=== PATIENT | female | born 1955 | race Caucasian/White ===

== ENCOUNTER 2024-12-07 22:35 | Emergency (ER) | payer OTHER, SELFPAY ==
--- NOTE | 2024-12-07 22:47 | ED_ITS ---
HPI - Abdominal Pain General Time Seen by Provider: 22:47 Date Seen: 12/07/24 Chief Complaint: Abdominal Pain Stated Complaint: R flank pain Time Seen by Provider: 12/07/24 22:47 Source: patient Mode of arrival: ambulatory Limitations: no limitations History of Present Illness HPI narrative: 69-year-old female who presents today with right-sided abdominal pain. Has had this all day. Vomited once. Pain is worse with movement and breathing, has not really tried to eat since she vomited earlier. No fevers or chills, has not had pain like this before, denies urinary symptoms. No chest pain, says she feels little short of breath. Related Data Home Medications ?Medication ?Instructions ?Recorded ?Confirmed albuterol sulfate .ROUTE 12/07/24 budesonide-formoterol HFA 80 1 inh inhalation BID 12/07/24 12/07/24 mcg-4.5 mcg/actuation aerosol inhaler (Symbicort) lisinopril 2.5 mg tablet 2.5 mg PO DAILY 12/07/24 12/07/24 Allergies Allergy/AdvReac Type Severity Reaction Status Date / Time pseudoephedrine (From Allergy Swelling Verified 12/08/24 00:30 Sudafed) of Lip/Tongue/Throat Exam Narrative: Exam Narrative: General: Well-developed and well-nourished, no acute distress Head: Atraumatic and normocephalic Eyes: Pupils are equal reactive, extraocular motions intact, conjunctiva clear ENT: External nose and ears are normal, posterior pharynx without erythema or exudate Neck: No midline cervical tenderness, full spontaneous range of motion the neck, trachea midline, no adenopathy Heart: Regular rate and rhythm no murmurs or thrills Lungs: bilateral expiratory wheezes worse and more coarse on the right Abdomen: Soft, Right lateral abdominal tenderness,, nondistended with active bowel sounds Musculoskeletal: No tenderness, deformity, or edema Neurologic: Awake, alert, and oriented x3, no gross focal neurologic deficits, cranial nerves intact as tested Psych: Mood and affect are appropriate Skin: No rashes Const: Vital Signs, click to edit/add: Vital Signs - 24 hr 12/07/24 22:50 Temperature 98.7 F Pulse Rate [Right Pulse Oximeter] 100 Respiratory Rate 26 H Blood Pressure [Ri ght Upper Arm] 126/84 Pulse Oximetry 93 Oxygen Delivery Me thod Room Air Course Course ED Course: patient seen and examined, presents today with right-sided abdominal pain. Did vomit earlier. On exam here, finally stable, no respiratory distress, appears comfortable, no fever. expiratory wheezes bilaterally, more coarse on the right. Right lateral abdominal tenderness. Consider intra-abdominal pathology including colitis, cholecystitis, acute appendicitis possible but a little bit less likely. Also consider intrathoracic pathology including pneumonia. Reevaluation(s) Time of Reevaluation #1: 23:30 Reevaluation #1: labs and bili interpreted by me with normal CBC, urinalysis with trace protein, no red cells. CT scan of the abdomen pelvis will be performed, consider CT PE study if D-dimer is positive. Time of Reevaluation #2: 00:29 Reevaluation #2: D-dimer positive, CT PE study ordered and independently interpreted by me, no evidence for pulmonary embolism, patient does appear to have a couple pulmonary nodules which will need outpatient follow-up. CT scan of the abdomen and pelvis independently interpreted by me with decompressed gallbladder, no stones, no evidence for acute appendicitis. Labs independently interpreted by me with normal basic metabolic panel, normal hepatic panel, normal lipase. Impression: 1. Allowing for mild respiratory motion degradation, no acute abnormality is appreciated. 2. Linear areas of scarring and/or atelectasis. A more nodular focal area in the right lung base is noted measuring 19 millimeters, could represent confluent scarring but is overall indeterminate with no prior examination available for comparison. Follow-up CT in 3 months recommended. Vital Signs Vital signs: Initial Vital Signs Temperature 98.7 F 12/07/24 22:50 Temperature Source Temporal Artery Scan 12/07/24 22:50 Pulse Rate 100 12/07/24 22:50 Respiratory Rate 26 H 12/07/24 22:50 Blood Pressure 126/84 12/07/24 22:50 Blood Pressure Mean 98 12/07/24 22:50 Blood Pressure Position Sitting 12/07/24 22:50 Pulse Oximetry 93 12/07/24 22:50 Oxygen Delivery Method Room Air 12/07/24 22:50 Vital Signs Temperature 98.7 F 12/07/24 22:50 Pulse Rate 100 12/07/24 22:50 Respiratory Rate 26 H 12/07/24 22:50 Blood Pressure 126/84 12/07/24 22:50 Pulse Oximetry 93 12/07/24 22:50 Oxygen Delivery Method Room Air 12/07/24 22:50 Temperature 98.7 F 12/07/24 22:50 Pulse Rate 100 12/07/24 22:50 Respiratory Rate 26 H 12/07/24 22:50 Blood Pressure 126/84 12/07/24 22:50 Pulse Oximetry 93 12/07/24 22:50 Oxygen Delivery Method Room Air 12/07/24 22:50 Medications Administered Medications: Discontinued Medications Generic Name Dose Route Start Last Admin Trade Name Jorgeq PRN Reason Stop Dose Admin Albuterol/Ipratropium 1 neb 12/07/24 23:56 12/08/24 00:13 Iprat-Albut 0.5-2.5 Mg/3 Ml Neb IH 12/07/24 23:57 1 neb ONCE ONE Administration MDM - Abdominal Pain Lab Data Labs: Lab Results 12/07/24 12/07/24 Range/Units 22:55 23:05 WBC 6.46 (4.50-11.00) K/uL RBC 4.34 (4.00-5.20) m/uL Hgb 13.7 (12.0-16.0) gm/dL Hct 41.9 (33.0-51.0) % MCV 97 (80-100) fL MCH 32 (26-34) pg MCHC 33 (32-36) gm/dL RDW Coeff of Anisa 13.6 (11.5-15.5) % Plt Count 216 (140-440) K/uL Neut % (Auto) 76.2 H (42.0-72.0) % Lymph % (Auto) 7.6 L (20-44) % [place] % (Auto) 7.3 (0.0-11.0) % Eos % (Auto) 8.4 H (0.0-7.0) % Baso % (Auto) 0.2 (0.0-3.0) % Neut # (Auto) 4.90 (1.7-7.0) K/uL Lymph # (Auto) 0.50 L (0.90-2.90) K/uL [place] # (Auto) 0.50 (0.00-0.90) K/UL Eos # (Auto) 0.50 (0.00-0.50) K/uL Baso # (Auto) 0.01 (0.00-0.30) K/uL Abs Immat Gran (auto) 0.02 (0.00-0.30) K/uL Imm/Tot Granulo (auto) 0.3 % D-Dimer Quant (PE/DVT) 1.73 H (0.00-0.50) ug/ml Sodium 137 (135-149) mmol/L Potassium 3.6 (3.6-5.1) mmol/L Chloride 101 (96-114) mmol/L Carbon Dioxide 28 (20-32) mmol/L Anion Gap 8 (7-15) mEq/L BUN 12 (7-30) mg/dL Creatinine 0.8 (0.5-1.5) mg/dL Estimated Creat Clear 43.18 Estimated GFR 81 ml/min Glucose 94 (60-115) mg/dL Calcium 8.8 (8.4-10.6) mg/dL Total Bilirubin 0.5 (0.1-1.5) mg/dL Direct Bilirubin 0.4 (0.0-0.5) mg/dL AST 23 (12-35) U/L ALT 11 (4-35) U/L Alkaline Phosphatase 91 (40-150) U/L Total Protein 6.9 (6.0-8.3) g/dL Albumin 3.9 (3.3-5.0) g/dL Lipase 32 (23-300) U/L Urine Color Yellow (Yellow) Urine Appearance Clear (Clear) Urine pH 5.5 (5.0-8.5) Ur Specific [place] 1.015 (1.000-1.030) Urine Protein Trace A (Negative) Urine Glucose (UA) Negative (Negative) Urine Ketones Negative (Negative) Urine Blood Negative (Negative) Urine Nitrite Negative (Negative) Urine Bilirubin Negative (Negative) Urine Urobilinogen 0.2 (0.2-1.0) Ur Leukocyte Esterase Negative (Negative) Urine RBC 0-2 (0-2) Urine WBC 2-5 (0-5) Ur Squamous Epith Cells Few (None-Few) Urine Bacteria Few A (None) Urine Mucus Few A (None) Discharge Plan Discharge Clinical Impression: Incidental pulmonary nodule, Right lateral abdominal pain Patient Disposition: Home, Self-Care Condition: Stable Instructions: Abdominal Pain (ED), Pulmonary Nodules (ED) Additional Instructions: After evaluation today, no definite cause for your pain is found. The gallbladder and appendix appear normal, there are no blood clots or evidence of infection in the lungs. Your CT scan does show a nodule in the right long that may represent scar tissue but will need to be rechecked in about 3 months with a repeat CT scan. He should talk to your regular doctor about this. Take Tylenol or ibuprofen as needed for pain. Activity Level: No Restrictions Discharge Diet: Regular Prescriptions: No Action albuterol sulfate [Ventolin HFA] .ROUTE budesonide-formoterol [Symbicort] 80-4.5 mcg/actuation HFA aerosol inhaler 1 inh inhalation BID lisinopril 2.5 mg tablet 2.5 mg PO DAILY Follow Up/Referrals: Priscila Tovar MD [Primary Care Provider] - Stand Alone Forms: [employer] Info Instructions
[2024-12-07 22:50] VITALS: BP 126/84; PULSE 100; RESP 26; TEMP 37.1; O2SAT 93; BMI 40.8
[2024-12-07 23:04] LABS: Appearance Urine Clear (Clear); Bilirubin Urine Negative (Negative); Blood Urine Negative (Negative); Color Urine Yellow (Yellow); Glucose Urine Negative (Negative); Ketones Urine Negative (Negative); Leukocyte Esterase Urine Negative (Negative); Nitrite Urine Negative (Negative); Protein Urine Trace (Negative); Specific Gravity Urine 1.015 (1.000-1.030); Urobilinogen Urine 0.2 (0.2-1.0); pH Urine 5.5 (5.0-8.5)
[2024-12-07 23:19] LABS: Basophils Absolute Auto 0.01 K/uL (0.00-0.30); Basophils Percent Auto 0.2 % (0.0-3.0); Eosinophils Percent Auto 8.4 % (0.0-7.0); Hematocrit 41.9 % (33.0-51.0); Hemoglobin* 13.7 gm/dL (12.0-16.0); Immature Granulocytes Abs Auto 0.02 K/uL (0.00-0.30); Immature Granulocytes Pct Auto 0.3 %; Lymphocytes Percent Auto 7.6 % (20-44); Mean Corpuscular HGB Conc 33 gm/dL (32-36); Mean Corpuscular Hemoglobin 32 pg (26-34); Mean Corpuscular Volume 97 fL (80-100); Monocytes Percent Auto 7.3 % (0.0-11.0); Neutrophils Percent Auto 76.2 % (42.0-72.0); Platelet Count* 216 K/uL (140-440); RDW Coefficient of Variation % 13.6 % (11.5-15.5); Red Blood Count 4.34 m/uL (4.00-5.20); White Blood Count* 6.46 K/uL (4.50-11.00)
[2024-12-07 23:21] LABS: Bacteria Urine Few; Mucus Urine Few; RBC Urine 0-2 (0-2); Squamous Epithelial Cell Urine Few (None-Few)
[2024-12-07 23:22] LABS: Slide Review Reflex No
[2024-12-07 23:31] LABS: Albumin* 3.9 g/dL (3.3-5.0); Chloride* 101 mmol/L (96-114); Potassium* 3.6 mmol/L (3.6-5.1); Sodium* 137 mmol/L (135-149)
--- OUTSIDE RECORDS SUMMARY | 2024-12-07 23:32 | XMS_ITS | Encounter Summary ---
Author Organization [employer] [facility] [employer] Address [address] [place] [address] Care Team Providers Care Lens Generating Machine Tender Name Role Phone No Primary/Referring, Phy Primary Care Provider Unavailable Encounter Details Date Type Department Care Team (Late st Contact Info) Description 05/28/2012 Emergency Room External to [facility], Provider NASAL CONGESTION Social History Tobacco Use Types Packs/Day Years Used Date Smoking Tobacco: Every Day Alcohol Use Standard Drinks/Week Comments Yes 0 (1 standard drink = 0.6 oz pur e alcohol) 3-4x/year Comments No Sex and Gender Information Value Date Recorded Sex Assigned at Not on file Legal Sex Female 3:43 AM CDT Gender Identity Not on file Sexual Orientation Not on file 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
--- OUTSIDE RECORDS SUMMARY | 2024-12-07 23:32 | XMS_ITS | Encounter Summary ---
Author Organization Replaced by [facility] Address [address] [place] [address] Care Team Providers Care System Architect Name Role Phone No Primary/Referring, Phy Primary Care Provider Unavailable Encounter Details Date Type Department Care Team (Late st Contact Info) Description 10/29/2024 Results Follow-Up Replaced by [facility] [place] [address] [place], [place] [id number] Duy Schaeffer MD [address] [place], [place] [address] Social History Tobacco Use Types Packs/Day Years Used Date Smoking Tobacco: Former Cigarettes 0 47.1 0 02/23/1976 - 03/30/2023 Smokeless Tobacco: Never Alcohol Use Standard Drinks/Week Comments Yes 0 (1 standard drink = 0.6 oz pur e alcohol) 3-4x/year PHQ-2 Answer Date Recorded PHQ-2 Score 0 06/25/2023 Financial Resource Strain Answer Date R ecorded Is it hard for you to pay fo r the very basics like food, housing, medical care or heating? No 01/18/2023 Food Insecurity Answer Date Recorded Does your food run out before you have the money to buy more? No 01/18/2023 Transportation Needs Answer Date Record ed Does a lack of transportatio n keep you from your medical appointments or from getting your medications? 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
--- OUTSIDE RECORDS SUMMARY | 2024-12-07 23:32 | XMS_ITS | Encounter Summary ---
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 Thanks for using [facility] today. I?? sorry to hear that you're having symptoms of a bladder infection -- let's get you feeling better!! I've sent a prescription for an antibiotic to [facility]. Take the medication with a full meal twice a day and remember to drink lots of fluids. Please be sure to read through the treatment plan I've put together for you below, as this has additional information and instructions. We are here for you for any questions or concerns along the way, just request a follow up. Feel better soon! - EDGAR Gan Treatment Plan Because you have a bacterial infection, I sent a prescription for an antibiotic to [facility]. I also listed a few ways to soothe your discomfort and additional self-care tips to get you on the road to feeling better. If your symptoms don't start to improve after 3 days, or if you have questions,please select Help to Request a Follow-up and we'll discuss next steps. Order(s) nitrofurantoin monohyd/m-cryst 100 mg capsule Take 1 capsule by mouth every twelve hours as directed for 5 days Note: Take with food to improve absorption. Refills: None Sent To: [facility] [place] [address] Treatment Plan Self Care Tip Topics Drink Water Avoid Caffeine Warm Packs What to Expect If you follow the recommendations I made on the Treatment tab, your symptoms should start to improve in about 3 days. If your symptoms don't start to improve after 3 days, or if you have questions, please select Help to Request a Follow- up and we'll help determine next steps. What to Watch Out For Follow-up in clinic if you experience: ??? Fever higher than 99.9 degrees ??? Shaking or chills ??? Vomiting ??? Severe pain in your back, abdomen or pelvis ??? Extreme fatigue My Conditions, Orders, Allergies as of December 03, 2024 Standard condition list Asthma ASTHMA WHEN I GET SICK Current orders nitrofurantoin monohyd/m-cryst (nitrofurantoin monohyd/m-cryst) lisinopril (lisinopril) topiramate (bulk) (topiramate (bulk)) Vitamin D2 (ergocalciferol (vitamin D2)) albuterol sulfate (albuterol sulfate) albuterol sulfate (albuterol sulfate) Allergies Sudafed (pseudoephedrine HCl), oral [employer] Information [employer] by [employer] We are an online clinic open 19/02. If you have any questions or comments about this visit, please call or email [email or web address] documented in this encounter Plan of Treatment Not on file documented as of this encounter Visit Diagnoses Diagnosis Urinary tract infection, site not specified documented in this encounter Care Teams Gypsum Roofer Relationship Specialty Start Date End Date No Primary/Referring, Phy PCP - General 04/29/24 documented as of this encounter
--- OUTSIDE RECORDS SUMMARY | 2024-12-07 23:32 | XMS_ITS | Encounter Summary ---
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
--- OUTSIDE RECORDS SUMMARY | 2024-12-07 23:32 | XMS_ITS | Encounter Summary ---
Author Organization [employer] Address [address] [address] Care Team Providers Care Industrial Retrofit Designer Name Role Phone No Primary/Referring, Phy Primary Care Provider Unavailable Encounter Details Date Type Department Care Team (Latest Contact Info) Description 11/06/1995 Orders Only Che Flor MD Social History Tobacco Use Types Packs/Day Years Used Date Smoking Tobacco: Never Assessed Comments Unknown Sex and Gender Information Value Date Recorded Sex Assigned at Not on file Legal Sex Female 3:43 AM CDT Gender Identity Not on file Sexual Orientation Not on file documented as of this encounter Plan of Treatment Not on file documented as of this encounter Visit Diagnoses Not on filedocumented in this encounter Care Teams Industrial Retrofit Designer Relationship Specialty Start Date End Date No Primary/Referring, Phy PCP - General 04/29/24 documented as of this encounter
--- OUTSIDE RECORDS SUMMARY | 2024-12-07 23:32 | XMS_ITS | Encounter Summary ---
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, Provider - 06/10/2013 12:00 AM CST H UP PAINTER HAND documented in this encounter Plan of Treatment Not on file documented as of this encounter Visit Diagnoses Not on filedocumented in this encounter Care Teams Reset Merchandiser Relationship Specialty Start Date End Date No Primary/Referring, Phy PCP - General 04/29/24 documented as of this encounter
--- OUTSIDE RECORDS SUMMARY | 2024-12-07 23:32 | XMS_ITS | Encounter Summary ---
Author Organization [employer] Address [address] [place] [address] Care Team Providers Care University Librarian Name Role Phone No Primary/Referring, Phy Primary Care Provider Unavailable Encounter Details Date Type Department Care Team (Late st Contact Info) Description 01/16/2017 Refill Order [facility] [address] [place] [address] Darlene Gomes, MOSAIC FLOOR LAYER, CEMENT MIXER DRIVER Social History Tobacco Use Types Packs/Day Years Used Date Smoking Tobacco: Every Day Cigarettes Alcohol Use Standard Drinks/Week Comments Yes 0 (1 standard drink = 0.6 oz pur e alcohol) 3-4x/year Comments No Sex and Gender Information Value Date Recorded Sex Assigned at Not on file Legal Sex Female 3:43 AM CDT Gender Identity Not on file Sexual Orientation Not on file 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 Phil Rader CMA 01/16/2017, 10:24 AM documented in this encounter Plan of Treatment Not on file documented as of this encounter Results * Potassium (02/19/2017 8:12 AM CDT) Potassium 4.1 3.5 - 5.1 mmol/L [facility] 02/19/2017 8:12 AM CDT 02/19/2017 8:13 AM CDT Narrative [facility] - 02/19/2017 12:30 PM CDT Performed at [facility], [address] [place], [place] [id number] Darlene Gomes APRN, CEMENT MIXER DRIVER LAB_1 Stephanie l Result Performing Organization Address [facility] Co de Phone Number [facility] [phone] * Creatinine / GFR (02/19/2017 8:12 AM CDT) Creatinine 0.77 0.55 - 1.02 mg/dl [facility] GFR, Estimated >60 >60 ml/min/1.7 3m2 [facility] GFR, Est., If Black >60 >60 ml/min/1.7 3m2 [facility] 02/19/2017 8:12 AM CDT 02/19/2017 8:13 AM CDT Narrative [facility] - 02/19/2017 12:30 PM CDT Performed at [facility], [address] [place], [place] [id number] Darlene Gomes APRN, CEMENT MIXER DRIVER LAB_1 Stephanie l Result Performing Organization Address [facility] Co de Phone Number [facility] [phone] documented in this encounter Visit Diagnoses Diagnosis Encounter for long-term (current) use of medications- Primary Encounter for long-term (current) use of other medications Encounter for long-term (current) use of medications Encounter for long-term (current) use of other medications Screening cholesterol level Screening for lipoid disorders Vitamin D deficiency ([facility]) Unspecified vitamin D deficiency documented in this encounter Care Teams University Librarian Relationship Specialty Start Date End Date No Primary/Referring, Phy PCP - General 04/29/24 documented as of this encounter
--- OUTSIDE RECORDS SUMMARY | 2024-12-07 23:32 | XMS_ITS | Encounter Summary ---
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
--- OUTSIDE RECORDS SUMMARY | 2024-12-07 23:32 | XMS_ITS | Encounter Summary ---
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
--- OUTSIDE RECORDS SUMMARY | 2024-12-07 23:32 | XMS_ITS | Clinical Summary ---
Author Organization [facility] Address [address], [place] [address] Care Team Providers Care Seamstress Fitter Name Role Phone No Primary/Referring, Phy Primary Care Provider Unavailable Source Comments You are receiving this document as you are listed as the primary care provider,follow-up provider, or the patient has been referred to you for consultation.This is in compliance with the Medicare and[facility] EHR Incentive Program,which states Providers who transition their patient to another setting of careor provider of care or refers their patient to another provider of care shouldprovide summary care record for each transition of care or referral. Asterisk Allergies Active Allergy Reactions Criticality Noted Date Comments Amoxicillin Rash Low 01/26/2004 Pseudoephedrine 11/23/2014 Pseudoephedrine Hcl Hives High Medications Multiple Vitamins-Minera ls (MULTIVITAL OR) Take 4 Tabs by mouth daily. Active acetaminophen (TYLENOL) 325 MG tablet Take 1-2 Tablets (325-650 mg) by mouth every 4 hours as needed. Active aspirin 81 MG enteric coated tablet Take 1 Tab by mouth daily. 30 Tab 3 2 Active Additional Information Patient not taking.Reported on 09/23/2024 Vitamin D, Ergocalciferol, 1.25 MG (19549 UT) CAPSIndications :Vitamin D deficiency (HRC) TAKE ONE CAP BY MOUTH TWO TIMES WEEKLY. 24 Capsule 4 Active methylPREDNISol one (MEDROL 21 TABLET DOSEPACK) 4 MG tablet Follow package directions 21 Tablet 4 Active budesonide-form oterol (SYMBICORT) 80-4.5 MCG/ACT inhaler Inhale 2 Puffs two times a day. Rinse mouth/gargle after use. 1 Each 11 4 04/16/20 25 Active methylPREDNISol one (MEDROL 21 TABLET DOSEPACK) 4 MG tablet Follow package directions 21 Tablet 4 Active Additional Information Patient not taking.Reported on 09/23/2024 VENTOLIN HFA 108 (90 Base) MCG/ACT inhalerIndicati ons:Vitamin D deficiency (HRC) INHALE 1-2 PUFFS EVERY 4 HOURS NEEDED FOR WHEEZING. 2 Each 4 Active albuterol 2.5 mg/3 mL, 0.083%, (PROVENTIL) nebulizer solutionIndicat ions:Wheezing Inhale 1 Each (2.5 mg) every 6 hours as needed for Wheezing. 180 mL 4 Active cyclobenzaprine (FLEXERIL) 5 MG tabletIndicatio ns:Acute right-sided low back pain without sciatica Take 1 Tablet (5 mg) by mouth three times a day as needed for Muscle Spasms. 30 Tablet 4 Active Additional Information Patient not taking.Reported on 09/23/2024 lisinopril (ZESTRIL) 2.5 MG tablet TAKE 1 TABLET BY MOUTH EVERY DAY 90 Tablet 3 4 Active topiramate (TOPAMAX) 25 MG tablet TAKE 1 TABLET BY MOUTH TWICE A DAY 180 Tablet 1 4 Active budesonide-form oterol (SYMBICORT) 80-4.5 MCG/ACT inhaler Inhale 2 Puffs two times a day. Rinse mouth/gargle after use. 1 Each 11 5 08/21/19 26 Active methylPREDNISol one (MEDROL 21 TABLET DOSEPACK) 4 MG tablet Follow package directions 21 Tablet 5 Active Additional Information Patient not taking.Reported on 09/23/2024 Active Problems Problem Noted Date Diagnosed Date COPD with chronic bronchitis 05/28/2019 Moderate persistent asthma with acute exacerbati on 05/28/2019 Moderate persistent asthma without complication 05/28/2019 COPD, mild 05/28/2019 Aortic valve disorder 01/25/2012 Overview (04/29/2015): AI 01/2012-negative exercise stress test Dr. Singh-needs echo and follow up in one year 02/08 [facility] Heart murmur 11/09/2011 Vitamin D deficiency 12/30/2009 Overview (02/22/2017): Component Latest Ref Rng 11/09/2011 VITAMIN D, 25-OH, TOT 30 - 80 ng/mL 11.0 (L) 02/22/2017 pt reports takes 50,000 IU weekly consistently Personal history of gastric banding 12/24/2009 Wheezing 01/26/2004 Overview (03/21/2017): Rare inhaler use ; ASTHMA Obesity 01/08/2004 Overview (04/29/2015): [facility] Intestinal malabsorption 01/08/2004 Overview (04/29/2015): Gastric banding 08/05/96 [facility] Resolved Problems Problem Noted Date Diagnosed Date Resolved Date Cervical cancer screening 03/01/2017 Overview (07/25/2023): Per visit note 02/22/17, no hx abnormal Pap 2013 NILM 2016 NILM, HPV negative 61 y.o. 2022 NILM, HPV negative 67 y.o. Plan per ASCCP guidelines: Pt has met the criteria to cease pap testing Injury of right knee 12/13/2014 018 Overview (12/13/2014): 11/22/1451-aqyo-CTRM-XR negative for Fx Rash 03/29/2007 05/31/2018 Tobacco use disorder 03/29/2007 018 Overview (02/22/2017): 02/22/2017 would like to retry chantix Encounters Date Type Department Care Team Description 12/03/2024 lukas Huerta [address] [place] [address] 10/29/2024 Results Follow-Up [facility] [place] [address] [place] [address] Duy Schaeffer MD 09/23/2024 5:20 PM CARD ASSEMBLER Office Visit [facility] [place] [address] [place] [address] [phone] Rosy Brown APRN, PHYSICIAN CREDENTIALING SPECIALIST Chronic obstructive pulmonary disease with acute exacerbation (HRC) (Primary Dx) from Last 3 Months Immunizations Immunization Administration Dates Next Due PPSV23 (Pneumovax) 11/21/2010 Td (7+ yrs) 02/22/2017 Tdap 03/29/2007 Family History Medical History Relation Name Comments Cancer Father lung cancer Coronary Artery Disease Father High Blood Pressure Father Cancer Mother ?liver High Blood Pressure Mother Coronary Artery Disease Paternal Grandmother Hypertension Paternal Grandmother Osteoporosis Paternal Grandmother Relation Name Status Comments Father (Age 64) lung cance r Mother Alive Brother 1 Alive 45 Brother 2 Alive 36 Brother 3 Alive 34 Maternal Grandfather Maternal Grandmother (Age 96) Paternal Grandfather Paternal Grandmother old age Sister Alive 44 Son 1 Alive 33 Son 2 Alive 31 Son 3 Alive 21 Social History Tobacco Use Types Packs/Day Years [...] 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 on file Not on file Not on file Last Filed Vital Signs Vital Sign Reading Time Taken Comments Blood Pressure 119/76 09/23/2024 4:42 PM CARD ASSEMBLER Pulse 90 09/23/2024 4:42 PM CARD ASSEMBLER Temperature 37 C (98.6 F) 09/23/2024 4:42 PM CARD ASSEMBLER Respiratory Rate 18 09/23/2024 4:42 PM CARD ASSEMBLER Oxygen Saturation 97% 09/23/2024 4:42 PM CARD ASSEMBLER Inhaled Oxygen Concentration - - Weight 100.7 kg (222 lb) 04/28/2024 3:52 PM CDT Height 156.8 cm (5' 1.75) 06/25/2023 2:19 PM CS T Body Mass Index 40.93 06/25/2023 2:19 PM CARD ASSEMBLER Plan of Treatment Health Maintenance Due Date Last Done Comments Mammogram 1955 Zoster/Shingles Vaccine (1 of 2) 2007 Pneumococcal Vaccine 50+ Yrs (2 of 2 - PCV) 11/22/2011 11/21/2010 RSV Vaccine (1 - Risk 60-74 years 1-dose series) 2017 COVID-19 Vaccine ( - season) 2024 Adult Preventive Visit 06/25/2024 , 01/19/2023, 06/28/2018, Additional history exists Prediabetes: HGBA1C 08/15/2024 08/15/2023, 01/19/2023, 02/22/2017 Influenza Vaccine (Season Ended) 2025 FIT Colon Cancer Screening 10/23/202510/23, 08/17/2023, 05/21/2018, Additional history exists DTaP/Tdap/Td Vaccine (3 - Tdap) 02/22/2027 02/22/2017, 03/29/2007 Cholesterol 01/20/2028 01/19/2023, 01/28, 11/09/2011, Additional history exists Dexa Completed 01/17/2008 Hep C Screening (Preventive Services) Completed 02/22/2017 Cervical Cancer Screening Discontinued 2022, 06/25/2023, 02/22/2017, Additional history exists HepA Vaccine Aged Out No longer eligi ble based on patient's age to complete this topic HepB Vaccine Aged Out No longer eligi ble based on patient's age to complete this topic Hib Vaccine Aged Out No longer eligi ble based on patient's age to complete this topic IPV (Polio) Vaccine Aged Out No longe r eligible based on patient's age to complete this topic MCV4 Vaccine Aged Out No longer eligi ble based on patient's age to complete this topic Meningococcal B Vaccine Aged Out No l onger eligible based on patient's age to complete this topic Procedures Procedure Name Priority Date/Time Associated Diagnosis Comments FIT,OCCULT BLOOD, STOOL -CLINICAL REMINDER Routine 10/23/2024 6:45 AM CDT Screening for colon cancer HGB A1C Routine 08/15/2023 4:40 PM CARD ASSEMBLER IFG (impaired fasting glucose) HPV WITH 16 18 GENOTYPING, CERVICAL/ENDOCERV ICAL Routine 06/25/2023 3:15 PM CARD ASSEMBLER Special screening examination for human papillomavirus (HPV) LIPID PANEL & DIRECT LDL (IF NEEDED) Routine 01/19/2023 5:26 PM CDT Screening cholesterol level HEPATITIS C ANTIBODY, WITH REFLEX Routine 02/22/2017 3:54 PM CDT Screening for HIV (human immunodeficiency virus) BONE DENSITY 01/17/2008 12:00 AM CDT from Last 3 Months or Most Recently Relevant to Health Maintenance Results * FIT, OCCULT BLOOD, STOOL CLINICAL REMINDER (10/23/2024 6:45 AM CDT) FIT Specimen 1 Negative Negative 10/29/2024 6:14 AM CDT [facility] Stool Non-blood Collection / Unknown 10/23/2024 6:45 AM CDT 08/06/2024 8:01 AM CARD ASSEMBLER us Duy Schaeffer MD LAB_1 Final Res ult [facility] [address] * Hgb A1C (08/15/2023 4:40 PM CARD ASSEMBLER) Hemoglobin A1C 5.6 <=5.6 % 08/15/2023 8:37 PM CARD ASSEMBLER [facility] Estimated Average Glucose (Calc) 114 < 117 mg/dL 08/15/2023 8:37 PM CARD ASSEMBLER [facility] Comment:Estimated average gl ucose (eAG) converts A1c into glucose units (mg/dL) and estimates average glucose over the past approximately 3 months. The eAG reference interval (<117 mg/dL) corresponds to an A1c of <5.7%. Blood Venipuncture / Unknown 08/15/2023 4:40 PM CARD ASSEMBLER 08/15/2023 4:40 PM CARD ASSEMBLER Priscila Tovar MD LAB_1 Final Result [facility] [address] [phone] * HPV with 16 18 Genotyping (06/25/2023 3:15 PM CARD ASSEMBLER) HPV High Risk Type 16 PCR Not Detected Not detected 07/25/2023 10:38 AM [facility] HPV High Risk Type 18 PCR Not Detected Not Detected 07/25/2023 10:38 AM [facility] HPV High Risk Other Than 16/18 Not Detected Not detected 07/25/2023 10:38 AM [facility] Cervical Broom ENTIRE ENDOCERVIX / Unknown 06/25/2023 3:15 PM CARD ASSEMBLER 06/25/2023 3:35 PM CARD ASSEMBLER Critical access hospital - 07/25/2023 10:38 AM CARD ASSEMBLER The [facility] HPV test is a qualitative in vitro test for the detection of Human Papillomavirus in [facility] patient specimens. The test utilizes amplification of target DNA by Polymerase Chain Reaction (PCR) and nucleic acid hybridization for the detection of 14 high-risk (HR) HPV types. The assay tests for high risk types (16, 18, 31, 33, 35, 39, 45, 51, 52, 56, 58, 59, 66, and 68). Priscila Tovar MD LAB_1 Final Result [address] [phone] * Lipid Panel and Direct LDL(If Needed) (01/19/2023 5:26 PM CDT) Cholesterol 168 0 - 199 mg/dL 01/19/2023 7:17 PM CDT [facility] Triglyceride 123 <=149 mg/dL 01/19/2023 7:17 PM CDT [facility] HDL Cholesterol 58 >=40 mg/dL 01/19/2023 7:17 PM CDT [facility] LDL, Calculated 85 <130 mg/dL 01/19/2023 7:17 PM CDT [facility] Non HDL Chol, Calculated 110 <=159 mg/dL 01/19/2023 7:17 PM CDT [facility] Cholesterol/HDL Ratio 2.9 01/19/2023 7:17 PM CDT [facility] Hours Fasting Unknown 01/19/2023 7:17 PM CDT [facility] Blood Venipuncture / Unknown 01/19/2023 5:26 PM CDT 01/19/2023 5:26 PM CDT Priscila Tovar MD LAB_1 Final Result Performing Organization Address [facility]/ZIP Co de Phone Number [facility] [address] [address], [facility] [phone] [facility] [address] [place] [address], [facility] [phone] * Hepatitis C Antibody, with Reflex (02/22/2017 3:54 PM CDT) Anti-HCV Negative (Non Reactive) [facility] Comment: Antibodies to HCV not detected. Does not exclude the possibility of exposure to HCV. 02/22/2017 3:54 PM CDT 02/22/2017 3:55 PM CDT Narrative [facility] - 02/22/2017 6:57 PM CDT Performed at [facility], [address] [place] [address] us Darlene Gomes APRN, PHYSICIAN CREDENTIALING SPECIALIST LAB_1 Stephanie l Result [facility] [phone] * BONE DENSITY (01/17/2008 12:00 AM CDT) Anatomical Region Laterality Modality Other 01/17/2008 Narrative [facility], Provider - 01/17/2008 12:00 AM CDT Darlene Gomes APRN, PHYSICIAN CREDENTIALING SPECIALIST DUMMY/OTHER/AR Stephanie l Result from Last 3 Months or Most Recently Relevant to Health Maintenance Insurance MEDICARE PART A [employer] Care Teams Seamstress Fitter Relationship Specialty Start Date End Date No Primary/Referring, Phy PCP - General 04/29/24
--- OUTSIDE RECORDS SUMMARY | 2024-12-07 23:32 | XMS_ITS | Encounter Summary ---
Author Organization [facility] [facility] Address [address], [place] [address] Care Team Providers Care Claim Benefit Specialist Name Role Phone No Primary/Referring, Phy Primary Care Provider Unavailable Encounter Details Date Type Department Care Team (Late st Contact Info) Description 03/18/2018 Correspondence [facility] Occupational and Environmental Medicine [address] [place], [place] [id number] Gabbi Collier, DO [address] [facility] [address] [place], [place] [id number] MEDICAL EQUIPMENT PROOF OF DELIVERY Social History Tobacco Use Types Packs/Day Years Used Date Smoking Tobacco: Former Cigarettes 1 48.8 S tarted: 02/23/1976 Smokeless Tobacco: Never Alcohol Use Standard Drinks/Week Comments Yes 0 (1 standard drink = 0.6 oz pur e alcohol) 3-4x/year Comments No Sex and Gender Information Value Date Recorded Sex Assigned at Not on file Legal Sex Female 3:43 AM CDT Gender Identity Not on file Sexual Orientation Not on file 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
[2024-12-07 23:34] LABS: Alanine Aminotransferase* 11 U/L (4-35); Alkaline Phosphatase* 91 U/L (40-150); Anion Gap 8 mEq/L (7-15); Aspartate Amino Transferase* 23 U/L (12-35); Bilirubin Direct* 0.4 mg/dL (0.0-0.5); Bilirubin Total* 0.5 mg/dL (0.1-1.5); Blood Urea Nitrogen* 12 mg/dL (7-30); Calcium* 8.8 mg/dL (8.4-10.6); Carbon Dioxide* 28 mmol/L (20-32); Creatinine* 0.8 mg/dL (0.5-1.5); Est. Creatinine Clearance* 43.18; Estimated Glomerular Filt Rate 81 ml/min; Glucose* 94 mg/dL (60-115); Lipase* 32 U/L (23-300); Total Protein* 6.9 g/dL (6.0-8.3)
[2024-12-07 23:43] LABS: D Dimer Quantitative* 1.73 ug/ml (0.00-0.50)
[2024-12-08] MEDS: IPRAT-ALBUT 0.5-2.5 MG/3 ML NEB 1 NEB IH (00:13)
[2024-12-08 00:35] VITALS: BP 139/78; PULSE 89; RESP 18; O2SAT 94
--- NOTE | 2024-12-08 23:46 | CRLHL7_ITS ---
For Patients: As a result of the Century Cures Act, medical imaging exams and procedure reports are released immediately into your electronic medical record. You may view this report before your referring provider. If you have questions, please contact your health care provider. Indication: Right lower chest pain, right upper quadrant pain, shortness of breath, positive D-dimer Technique: CTA of the chest with contrast and postcontrast CT of the abdomen and pelvis with multiplanar reformats following 95 mL Isovue 370 IV. Axial MIP images of the chest obtained. Comparison: None Findings: Chest: Pulmonary arteries: Respiratory motion degradation. No large or central pulmonary embolism appreciated. Lungs: Scattered linear opacities likely representing combination of atelectasis and scarring. Within the right middle lobe is a more nodular area measuring 22 x 16 millimeters, may represent confluent fibrosis but is indeterminate and with no prior study available for comparison. Mediastinum: No acute abnormality appreciated. Small hiatal hernia. Calcified atherosclerosis. Lymph nodes: No gross lymphadenopathy. Soft tissues: No acute abnormality appreciated. Bones: No acute abnormality appreciated. Chronic thoracic compression fractures. Multilevel spondylosis. Abdomen and Pelvis: Hepatobiliary: No significant parenchymal abnormality is appreciated. Spleen: Unremarkable. Pancreas: No acute abnormality appreciated. Adrenal glands: No acute abnormality appreciated. Kidneys: No significant parenchymal abnormality appreciated. No visualized calculi. No hydronephrosis. Bowel: Postoperative changes to the bowel. No obstruction. Diverticulosis. No focal perienteric or pericolonic stranding is appreciated. The appendix is visualized and appears unremarkable. Vascular: Calcified atherosclerosis. Lymph nodes: No gross lymphadenopathy. Peritoneum: No free air. No free fluid. : No acute abnormality appreciated. Soft tissues: No acute abnormality appreciated. Bones: No acute fracture. No lytic or blastic lesion. Chronic compression fractures. Degenerative changes in the spine and pelvis. Impression: 1. Allowing for mild respiratory motion degradation, no acute abnormality is appreciated. 2. Linear areas of scarring and/or atelectasis. A more nodular focal area in the right lung base is noted measuring 19 millimeters, could represent confluent scarring but is overall indeterminate with no prior examination available for comparison. Follow-up CT in 3 months recommended. Please note that all CT scans at this facility use dose modulation, iterative reconstruction, and/or weight-based dosing when appropriate to reduce radiation dose to as low as reasonably achievable. Dictated by Klever Urbina MD @ 12/08/2024 12:46:15 AM (Electronically Signed)
== END 2024-12-08 01:10 | disposition home or self-care (01) ==
PROVIDERS: Emergency Provider Family Medicine; PCP Family Medicine
DX: R10.9 Unspecified abdominal pain (principal); R91.1 Solitary pulmonary nodule
CPT/HCPCS: 36415; 71275; 74177; 80048; 80076; 81001; 83690; 85025; 85379; 87086; 99284; 99285; Q9967